=== PATIENT | female | born 1950 | race Caucasian/White ===

== ENCOUNTER 2022-01-28 18:54 | Inpatient (IN) | payer MEDICARE ==
[~2022-01-28] VITALS: Ht 154.9 cm; Wt 54.6 kg
[2022-01-28 23:43] LABS: HEMATOCRIT 41.2 % (36-46); HEMOGLOBIN 13.8 g/dL (12.0-16.0); MEAN CORPUSCULAR HEMOGLOBIN 32.8 pg (26.0-34.0); MEAN CORPUSCULAR HGB CONC 33.5 G/dL (31.0-37.0); MEAN CORPUSCULAR VOLUME 98 fL (80-100); PLATELET COUNT (AUTO) 179 K/uL (150-450); RED BLOOD CELL COUNT(AUTO) 4.21 MIL/uL (4.00-5.20); RED CELL DISTRIBUTION WIDTH 19.1 % (11.5-14.5)
[2022-01-28 23:50] LABS: ANION GAP 12 mmol/L (8-16); CALCIUM, TOTAL 8.5 mg/dL (8.8-10.5); CARBON DIOXIDE 26 mmol/L (22-29); CHLORIDE 106 mmol/L (98-107); CREATININE 0.55 mg/dL (0.60-1.30); GLUCOSE,RANDOM 90 mg/dL (70-110); POTASSIUM 3.7 mmol/L (3.5-5.1); SODIUM SERUM 144 mmol/L (136-145); UREA NITROGEN, BLOOD 15 mg/dL (7-18)
[2022-01-28 23:54] LABS: GLOMERULAR FILTR. RATE CALC > 60 mL/min (>60)
[2022-01-28 23:56] LABS: ALANINE AMINOTRANSFERASE 36 U/L (12-78); ALBUMIN 3.9 g/dL (3.4-5.0); ALKALINE PHOSPHATASE 64 U/L (46-116); ASPARTATE AMINOTRANSFERASE 39 U/L (15-37); BILIRUBIN,TOTAL 0.2 mg/dL (0.1-1.0); CREATINE KINASE, TOTAL ONLY 40 U/L (26-192); TOTAL PROTEIN, SERUM 7.8 g/dL (6.4-8.2)
[2022-01-29] MEDS ORDERED: BACITRACIN 0.9 GM PACKET OINTMENT TP ONE
[2022-01-29] MEDS ORDERED: ACETAMINOPHEN 500 MG TABLET PO ONE
[2022-01-29] MEDS ORDERED: PERTUSS(ACELL),DIPH,TET VAC/PF 0.5 ML SYRINGE IM. ONE
[2022-01-29 00:12] LABS: B-TYPE NATRIURETIC PEPTIDE 61 pg/mL (0-100)
[2022-01-29 00:15] LABS: BAND NEUTROPHILS % (MANUAL) 1 % (0-5); LYMPHOCYTES % (MANUAL) 57 % (22-44); MONOCYTES % (MANUAL) 3 % (2-9); REACTIVE LYMPHOCYTES 9 % (0-0); SEGMENTED NEUTROPHILS % 30 % (40-70)
[2022-01-29] MEDS ORDERED: ACETAMINOPHEN 325 MG TABLET PO PRN (04:45)
[2022-01-29] MEDS ORDERED: ONDANSETRON HCL 4 MG/2 ML VIAL IVP PRN (04:45)
[2022-01-29] MEDS ORDERED: 0.9% SODIUM CHLORIDE 10 ML SYRINGE IVP PRN (04:45)
[2022-01-29 05:49] VITALS: BP 152/91
[2022-01-29 06:17] LABS: COVID AG,FIA SOURCE NASAL SWAB
[2022-01-29 08:24] VITALS: BP 154/100
[2022-01-29 11:52] VITALS: BP 142/83
[2022-01-29] MEDS ORDERED: LORazepam 2 MG TABLET PO PRN (14:00)
[2022-01-29 16:02] VITALS: BP 143/89
[2022-01-29 20:40] VITALS: BP 107/84
[2022-01-30] VITALS (7 sets, daily range): BP systolic 112–137; BP diastolic 62–96
[2022-01-30 06:43] LABS: EOSINOPHILS % (AUTO) 2.5 % (1.0-6.0); HEMATOCRIT 39.7 % (36-46); HEMOGLOBIN 13.6 g/dL (12.0-16.0); LYMPHOCYTES # (AUTO) 2.2 K/uL (1.0-4.8); LYMPHOCYTES % (AUTO) 37.9 % (22.0-44.0); MEAN CORPUSCULAR HEMOGLOBIN 33.3 pg (26.0-34.0); MEAN CORPUSCULAR HGB CONC 34.3 G/dL (31.0-37.0); MEAN CORPUSCULAR VOLUME 97 fL (80-100); MONOCYTES # (AUTO) 0.6 K/uL (0.1-1.0); MONOCYTES % (AUTO) 9.5 % (2.0-9.0); NEUTROPHILS # (AUTO) 2.9 K/uL (1.8-7.7); NEUTROPHILS % (AUTO) 49.1 % (40.0-70.0); PLATELET COUNT (AUTO) 155 K/uL (150-450); RED BLOOD CELL COUNT(AUTO) 4.09 MIL/uL (4.00-5.20); RED CELL DISTRIBUTION WIDTH 18.3 % (11.5-14.5)
[2022-01-30 06:55] LABS: ALANINE AMINOTRANSFERASE 27 U/L (12-78); ALBUMIN 3.5 g/dL (3.4-5.0); ALKALINE PHOSPHATASE 61 U/L (46-116); ANION GAP 8 mmol/L (8-16); ASPARTATE AMINOTRANSFERASE 28 U/L (15-37); BILIRUBIN,TOTAL 0.6 mg/dL (0.1-1.0); CARBON DIOXIDE 29 mmol/L (22-29); CHLORIDE 103 mmol/L (98-107); CREATININE 0.56 mg/dL (0.60-1.30); GLUCOSE,RANDOM 95 mg/dL (70-110); PHOSPHORUS 3.4 mg/dL (2.5-4.9); POTASSIUM 3.5 mmol/L (3.5-5.1); SODIUM SERUM 140 mmol/L (136-145); UREA NITROGEN, BLOOD 9 mg/dL (7-18)
[2022-01-30 06:56] LABS: GLOMERULAR FILTR. RATE CALC > 60 mL/min (>60)
[2022-01-30] MEDS ORDERED: LORazepam 2 MG TABLET PO PRN (07:00)
[2022-01-30] MEDS: LORazepam 2 MG TABLET PO SCH ×4 (08:23→20:01)
[2022-01-30] MEDS: MULTIVITAMINS WITH MINERALS, THERAPEUTIC TABLET PO SCH (08:23)
[2022-01-30] MEDS: THIAMINE 100 MG TABLET PO SCH (08:23)
[2022-01-31] VITALS (7 sets, daily range): BP systolic 102–118; BP diastolic 52–79
[2022-01-31] MEDS: LORazepam 2 MG TABLET PO SCH ×4 (08:35→20:32)
[2022-01-31] MEDS: THIAMINE 100 MG TABLET PO SCH (08:35)
[2022-01-31] MEDS: MULTIVITAMINS WITH MINERALS, THERAPEUTIC TABLET PO SCH (08:35)
[2022-02-01 04:23] VITALS: BP 136/78
[2022-02-01] MEDS ORDERED: LORazepam 1 MG TABLET PO PRN (07:00)
[2022-02-01 07:36] VITALS: BP 106/61
[2022-02-01] MEDS: LORazepam 1 MG TABLET PO SCH ×4 (08:34→20:55)
[2022-02-01] MEDS: MULTIVITAMINS WITH MINERALS, THERAPEUTIC TABLET PO SCH (08:34)
[2022-02-01] MEDS: THIAMINE 100 MG TABLET PO SCH (08:34)
[2022-02-01 11:45] VITALS: BP 98/59
[2022-02-01 15:35] VITALS: BP 91/68
[2022-02-01 19:30] VITALS: BP 119/80
[2022-02-01 23:50] VITALS: BP 124/71
[2022-02-02] VITALS (8 sets, daily range): BP systolic 115–151; BP diastolic 70–84
[2022-02-02] MEDS ORDERED: LORazepam 1 MG TABLET PO PRN (07:00)
[2022-02-02] MEDS: MULTIVITAMINS WITH MINERALS, THERAPEUTIC TABLET PO SCH (08:42)
[2022-02-02] MEDS: THIAMINE 100 MG TABLET PO SCH (08:42)
[2022-02-02] MEDS ORDERED: IOHEXOL 300 MG/ML 50 ML VIAL ONE (13:50)
[2022-02-02] MEDS ORDERED: VERAPAMIL HCL 2.5 MG/ML 2 ML VIAL ONE (13:50)
[2022-02-02] MEDS ORDERED: IOHEXOL 300 MG/ML 100 ML VIAL ONE (13:51)
[2022-02-02] MEDS ORDERED: IOHEXOL 300 MG/ML 150 ML VIAL ONE ×2 (13:51→13:59)
[2022-02-02] MEDS ORDERED: SODIUM BICARBONATE 50 MEQ/50 ML VIAL ONE (13:51)
[2022-02-02] MEDS ORDERED: LIDOCAINE/PF 1% 30 ML VIAL ONE (13:51)
[2022-02-02] MEDS ORDERED: HEPARIN SODIUM 1000 UNITS/NS 1,000 ML ONE (13:51)
[2022-02-02] MEDS ORDERED: NITROGLYCERIN 50 MG/D5% WATER 250 ML ONE (13:51)
[2022-02-02] MEDS ORDERED: FentaNYL CITRATE PF 100 MCG/2 ML VIAL ONE (14:26)
[2022-02-02] MEDS ORDERED: MIDAZOLAM HCL 2 MG/2 ML VIAL ONE (14:26)
[2022-02-02] MEDS ORDERED: HEPARIN SODIUM,PORCINE 1,000 UNITS/ML 10 ML VIAL IARTER ONE (14:30)
[2022-02-02] MEDS ORDERED: VERAPAMIL HCL 2.5 MG/ML 2 ML VIAL IARTER ONE (14:30)
[2022-02-02] MEDS ORDERED: HEPARIN SODIUM 1000 UNITS/NS 1,000 ML IARTER ONE (14:30)
[2022-02-02] MEDS ORDERED: IOHEXOL 300 MG/ML 150 ML VIAL ICOR ONE (14:30)
[2022-02-02] MEDS ORDERED: SODIUM CHLORIDE 0.9% 500 ML IV ONE (14:30)
[2022-02-02] MEDS ORDERED: NITROGLYCERIN/D5W 50 MG/250 ML IV BOTTLE IARTER ONE (14:30)
[2022-02-02] MEDS ORDERED: LIDOCAINE 1% 30 ML/SOD BICARB 8.4% 4 ML SQ ONE (14:45)
[2022-02-02] MEDS ORDERED: FentaNYL CITRATE PF 100 MCG/2 ML VIAL IVP ONE (14:45)
[2022-02-02] MEDS ORDERED: ACETAMINOPHEN 325 MG TABLET PO PRN (18:45)
[2022-02-02] MEDS ORDERED: ZOLPIDEM TARTRATE 5 MG TABLET PO PRN (20:45)
[2022-02-03 03:47] VITALS: BP 120/78
[2022-02-03 07:38] VITALS: BP 117/76
[2022-02-03] MEDS: THIAMINE 100 MG TABLET PO SCH (08:21)
[2022-02-03] MEDS: MULTIVITAMINS WITH MINERALS, THERAPEUTIC TABLET PO SCH (08:21)
[2022-02-03] MEDS ORDERED: ASPIRIN 81 MG DR TABLET PO SCH (09:00)
[2022-02-03 12:08] VITALS: BP 112/71
[2022-02-03] MEDS ORDERED: ATOR20TA86 PO (14:36)
[2022-02-03] MEDS ORDERED: ASPI81TA87 PO (14:37)
[2022-02-03] MEDS ORDERED: MULT-264 PO (14:37)
== END 2022-02-03 15:30 | disposition home or self-care (01) | DRG 287 ==
LOC: EMS 18:59 → 5S 01-29 04:59
PROVIDERS: ADMIT Hospitalist; ATTEND Hospitalist
PROC: 4B02XSZ Measurement of Cardiac Pacemaker, External Approach (ICD-10-PCS; 2022-01-31)
PROC: 4A023N7 Measurement of Cardiac Sampling and Pressure, Left Heart, Percutaneous Approach (ICD-10-PCS; principal; 2022-02-02)
PROC: B2111ZZ Fluoroscopy of Multiple Coronary Arteries using Low Osmolar Contrast (ICD-10-PCS; 2022-02-02)
DX: I35.0 Nonrheumatic aortic (valve) stenosis (principal); R55 Syncope and collapse; F10.129 Alcohol abuse with intoxication, unspecified; G31.84 Mild cognitive impairment of uncertain or unknown etiology; Z20.822 Contact with and (suspected) exposure to COVID-19; Z95.0 Presence of cardiac pacemaker
CPT/HCPCS: 70450; 71045; 72125; 80053; 82550; 83735; 83880; 84100; 84484; 85025; 93005; 93306; 93880; 97116; 97162; 97530; 99285; G0480; J1644; J2250; J2405; J3010; J3490; Q9967; 36415-L1; 36415-TC; Z7610

== ENCOUNTER 2022-02-22 23:05 | Emergency (ER) | payer MEDICARE ==
[~2022-02-22] VITALS: Ht 160 cm; Wt 56.8 kg
[~2022-02-22 23:05] MED LIST: ASPI81TA87 PO; ATOR20TA86 PO; MULT-264 PO
[2022-02-23 01:45] LABS: COVID AG,FIA SOURCE NASOPHARYNGEAL
[2022-02-23 01:51] LABS: BASOPHILS % (AUTO) 1.9 % (0.0-2.0); EOSINOPHILS % (AUTO) 1.6 % (1.0-6.0); HEMATOCRIT 40.6 % (36-46); HEMOGLOBIN 13.7 g/dL (12.0-16.0); LYMPHOCYTES # (AUTO) 3.7 K/uL (1.0-4.8); LYMPHOCYTES % (AUTO) 48.7 % (22.0-44.0); MEAN CORPUSCULAR HEMOGLOBIN 32.9 pg (26.0-34.0); MEAN CORPUSCULAR HGB CONC 33.7 G/dL (31.0-37.0); MEAN CORPUSCULAR VOLUME 98 fL (80-100); MONOCYTES # (AUTO) 0.4 K/uL (0.1-1.0); MONOCYTES % (AUTO) 4.9 % (2.0-9.0); NEUTROPHILS # (AUTO) 3.2 K/uL (1.8-7.7); NEUTROPHILS % (AUTO) 42.9 % (40.0-70.0); PLATELET COUNT (AUTO) 227 K/uL (150-450); RED BLOOD CELL COUNT(AUTO) 4.16 MIL/uL (4.00-5.20); RED CELL DISTRIBUTION WIDTH 14.2 % (11.5-14.5)
[2022-02-23 02:07] LABS: ANION GAP 8 mmol/L (8-16); CALCIUM, TOTAL 8.2 mg/dL (8.8-10.5); CARBON DIOXIDE 26 mmol/L (22-29); CHLORIDE 111 mmol/L (98-107); CREATININE 0.59 mg/dL (0.60-1.30); GLUCOSE,RANDOM 91 mg/dL (70-110); POTASSIUM 3.3 mmol/L (3.5-5.1); SODIUM SERUM 145 mmol/L (136-145); UREA NITROGEN, BLOOD 12 mg/dL (7-18)
[2022-02-23 02:09] LABS: GLOMERULAR FILTR. RATE CALC > 60 mL/min (>60)
[2022-02-23 02:14] LABS: ALANINE AMINOTRANSFERASE 17 U/L (12-78); ALBUMIN 3.1 g/dL (3.4-5.0); ALKALINE PHOSPHATASE 56 U/L (46-116); ASPARTATE AMINOTRANSFERASE 20 U/L (15-37); BILIRUBIN,TOTAL 0.2 mg/dL (0.1-1.0); TOTAL PROTEIN, SERUM 6.7 g/dL (6.4-8.2)
[2022-02-23 02:33] LABS: PLATELET MORPHOLOGY COMMENT LARGE PLTS PRESENT
[2022-02-23] MEDS: POTASSIUM CHLORIDE 20 MEQ ER TABLET PO ONE ×2 (03:35→03:37)
[2022-02-23 05:42] VITALS: BP 129/86
== END 2022-02-23 06:33 | disposition home or self-care (01) ==
LOC: EMS 23:16
DX: F10.229 Alcohol dependence with intoxication, unspecified (principal); F41.9 Anxiety disorder, unspecified; I35.0 Nonrheumatic aortic (valve) stenosis; Z20.822 Contact with and (suspected) exposure to COVID-19; Z96.89 Presence of other specified functional implants; Y90.8 Blood alcohol level of 240 mg/100 ml or more
CPT/HCPCS: 99282; 87426; 80053; 85025; 36415; G0480; 99285

== ENCOUNTER 2022-02-24 01:38 | Emergency (ER) | payer MEDICARE ==
[~2022-02-24] VITALS: Ht 160 cm; Wt 50.0 kg
[2022-02-24] MEDS ORDERED: PERMETHRIN 5% 60 GM CREAM TP ONE (02:45)
[2022-02-24 03:42] LABS: COVID AG,FIA SOURCE NASOPHARYNGEAL
[2022-02-24 04:23] LABS: BASOPHILS % (AUTO) 0.7 % (0.0-2.0); EOSINOPHILS % (AUTO) 0.1 % (1.0-6.0); HEMATOCRIT 40.2 % (36-46); HEMOGLOBIN 13.6 g/dL (12.0-16.0); LYMPHOCYTES # (AUTO) 2.5 K/uL (1.0-4.8); LYMPHOCYTES % (AUTO) 20.6 % (22.0-44.0); MEAN CORPUSCULAR HEMOGLOBIN 33.1 pg (26.0-34.0); MEAN CORPUSCULAR HGB CONC 33.9 G/dL (31.0-37.0); MEAN CORPUSCULAR VOLUME 98 fL (80-100); MONOCYTES # (AUTO) 0.8 K/uL (0.1-1.0); MONOCYTES % (AUTO) 6.4 % (2.0-9.0); NEUTROPHILS # (AUTO) 8.9 K/uL (1.8-7.7); NEUTROPHILS % (AUTO) 72.2 % (40.0-70.0); PLATELET COUNT (AUTO) 210 K/uL (150-450); RED BLOOD CELL COUNT(AUTO) 4.12 MIL/uL (4.00-5.20); RED CELL DISTRIBUTION WIDTH 13.9 % (11.5-14.5)
[2022-02-24 04:37] LABS: ALANINE AMINOTRANSFERASE 20 U/L (12-78); ALBUMIN 3.9 g/dL (3.4-5.0); ALKALINE PHOSPHATASE 65 U/L (46-116); ANION GAP 23 mmol/L (8-16); ASPARTATE AMINOTRANSFERASE 27 U/L (15-37); CALCIUM, TOTAL 9.3 mg/dL (8.8-10.5); CARBON DIOXIDE 18 mmol/L (22-29); CHLORIDE 97 mmol/L (98-107); CREATININE 1.05 mg/dL (0.60-1.30); GLUCOSE,RANDOM 128 mg/dL (70-110); SODIUM SERUM 138 mmol/L (136-145); UREA NITROGEN, BLOOD 8 mg/dL (7-18)
[2022-02-24 04:38] LABS: GLOMERULAR FILTR. RATE CALC 52 mL/min (>60)
[2022-02-24 04:39] LABS: B-TYPE NATRIURETIC PEPTIDE 436 pg/mL (0-100); POTASSIUM 2.8 mmol/L (3.5-5.1)
[2022-02-24] MEDS ORDERED: ChlordiazePOXIDE HCL 25 MG CAPSULE PO ONE (04:45)
[2022-02-24] MEDS ORDERED: POTASSIUM CHLORIDE 20 MEQ ER TABLET PO ONE (04:45)
[2022-02-24] MEDS ORDERED: MAGNESIUM SULFATE 2 GM, MVI, ADULT NO.1 WITH VIT K 10 ML, THIAMINE 100 MG, FOLIC ACID 1... IV ONE ×5 (04:45)
[2022-02-24] MEDS ORDERED: DIAZEPAM 5 MG/ML 2 ML SYRINGE IVP ONE (05:30)
[2022-02-24] MEDS ORDERED: POTASSIUM CHL 10 MEQ/WATER 50 ML IV SCH (05:30)
[2022-02-24 07:47] VITALS: BP 119/74
== END 2022-02-24 07:30 | disposition short-term general hospital (02) ==
LOC: EMS 01:40
DX: R55 Syncope and collapse (principal); F10.20 Alcohol dependence, uncomplicated; E87.6 Hypokalemia; F32.A Depression, unspecified; I35.0 Nonrheumatic aortic (valve) stenosis; Z96.89 Presence of other specified functional implants; Z20.822 Contact with and (suspected) exposure to COVID-19; Y90.8 Blood alcohol level of 240 mg/100 ml or more
CPT/HCPCS: 99285; 96365; 71045; 96367; 96375; 87426; 80053; 82962; 83735; 83880; 84484; 85025; 36415; 93005; G0480; J1885; J3490 ×2; J3411; J3480; J3475; J7030; 96361